=== PATIENT | male | born 1945 | race Caucasian/White ===

== ENCOUNTER 2018-01-27 14:16 | Emergency (ER) | payer MEDICARE ==
--- NOTE | 2018-01-27 15:40 | RAD ---
INDICATION: Right ankle injury. TECHNIQUE: 3 views of the right ankle were obtained. FINDINGS: There is diffuse soft tissue swelling. There is an oblique fracture extending through the distal fibular metaphysis to the joint margin. The distal fragment is displaced one cortical diameter lateral and posterior relative the proximal fragment. There is an oblique fracture of the distal tibia extending from the junction of the medial metaphysis and medial malleolus to the joint margin. The fracture fragments appear nondisplaced. There is a nondisplaced fracture of the posterior malleolus. There is also a fracture fragment present anterior to the tibia possibly arising from the medial malleolus fracture although this is not definite. IMPRESSION: TRIMALLEOLAR FRACTURE DESCRIBED.
[2018-01-27 17:48] VITALS: BP 141/78
--- NOTE | 2018-01-27 19:05 | ED ---
Tereza Alvarez Michael, scribed for Alonzo Cain MD on 01/27/18 at 1520 . Lower Extremity - HPI Summary HPI Summary: Pt is a 72 y/o M BIBA presenting to ED s/p falling; c/o R ankle pain. Associated pain is moderate, ranked 4/10. Aggravating factors: ambulation. He was outside spraying the weeds when he tripped on a rock and fell down a hill. Pt crawled inside, grabbed a cell phone and called EMS. Associated sx: Ankle swelling. PMHx: Pre-diabetes, shingles. - History of Current Complaint Chief Complaint: EDExtremityUpper Stated Complaint: RT ANKLE INJURY Time Seen by Provider: 01/27/18 14:32 Hx Obtained From: Patient Mechanism Of Injury: Fall From A Standing Position - Tripped over a rock Onset of Pain: Immediate Onset/Duration: Still Present Severity Currently: Moderate - 4/10 Pain Intensity: 4 Pain Scale Used: 0-10 Numeric Timing: Constant Location: Is Discrete @ - R lateral ankle Associated Signs And Symptoms: Positive: Swelling Aggravating Factor(s): Ambulation - Allergies/Home Medications Allergies/Adverse Reactions: Allergies Allergy/AdvReac Type Severity Reaction Status Date / Time MS Ibuprofen [Ibuprofen] Allergy Severe Itching Verified 09/10/14 08:18 MS Lisinopril [Lisinopril] Allergy Unknown Verified 09/10/14 08:18 Reaction Details PMH/Surg Hx/FS Hx/Imm Hx Endocrine/Hematology History: Reports: Hx Diabetes - DM II Cardiovascular History: Reports: Hx Angioplasty - STENT TO LAD IN 2002, Hx Coronary Artery Disease, Hx Hypercholesterolemia, Hx Hypertension, Hx Myocardial Infarction, Other Cardiovascular Problems/Disorders - cardiomyopathy , EF 25-30% Denies: Hx Angina, Hx Valvular Heart Disease Respiratory History: Denies: Hx Asthma, Hx Chronic Obstructive Pulmonary Disease (COPD) Sensory History: Reports: Hx Contacts or Glasses - not with patient Opthamlomology History: Reports: Hx Contacts or Glasses - not with patient Infectious Disease History: Yes Infectious Disease History: Reports: Hx Hepatitis - Patient states he was diagnosed with Hep C in the 1970s while in the [employer], Hx Human Immunodeficiency Virus (HIV) - HIV positive Denies: Traveled Outside the [place] in Last 30 Days - Family History Known Family History: Positive: Other - CVA - Father - Social History Occupation: Retired Lives: Dormitory/Roommates - friend Alcohol Use: Rare Alcohol Amount: "once every 5 years" Substance Use Type: Reports: None Smoking Status (MU): Former Smoker Review of Systems Negative: Fever Positive: Arthralgia - R ankle pain, Other - R ankle swelling All Other Systems Reviewed And Are Negative: Yes Physical Exam - Summary Physical Exam Summary: General: well-appearing, no pain distress Skin: warm, color reflects adequate perfusion, dry, R forearm and R anterior leg abrasions Head: normal Eyes: EOMI, ELIN ENT: normal Neck: supple, nontender Respiratory: CTA, breath sounds present Cardiovascular: RRR Abdomen: soft, nontender Bowel: present Musculoskeletal: strength/ROM intact, R lateral ankle tenderness and swelling Neurological: sensory/motor intact, A&O x3 Psychological: affect/mood appropriate Triage Information Reviewed: Yes Vital Signs On Initial Exam: Initial Vitals Temp Pulse Resp BP Pulse Ox 98.8 F 63 17 148/86 99 01/27/18 14:18 01/27/18 14:18 01/27/18 14:18 01/27/18 14:18 01/27/18 14:18 Vital Signs Reviewed: Yes Diagnostics - Vital Signs Vital Signs Temp Pulse Resp BP Pulse Ox 01/27/18 14:18 98.8 F 63 17 148/86 99 - Laboratory Lab Statement: Any lab studies that have been ordered have been reviewed, and results considered in the medical decision making process. - Radiology Ankle XR Xray Interpretation: Positive (See Comments) - IMPRESSION: TRIMALLEOLAR FRACTURE DESCRIBED. Radiology Interpretation Completed By: Radiologist Lower Extremity Course/Dx - Course Course Of Treatment: DISCUSSED THE CASE/X-RAY RESULTS WITH DR RICH. HE RECOMMENDED POSTERIOR AND STIRRUP SPLINTING, NON WEIGHT BEARING AND F/U WITH HIM ON 01/29/18. THE SPLINTS WERE PLACED BY PA IN ED. NEUROVASCULAR INTACT AFTER SPLINT PLACEMENT. F/U ORTHO; RETURN TO ED IF WORSE. - Diagnoses Provider Diagnoses: Fracture of ankle, right, closed - Physician Notifications Discussed Care Of Patient With: Cheikh Han Time Discussed With Above Provider: 16:10 Instructed by Provider To: Other - Provider recommends the usage of a splint, D/ C - follow up in office. Discharge - Sign-Out/Discharge Documenting (check all that apply): Discharge/Admit/Transfer - D/C - Discharge Plan Condition: Stable Disposition: HOME Patient Education Materials: Ankle Fracture (ED) Referrals: Hannah Gomez MD [Primary Care Provider] - Cheikh Han MD [Medical Doctor] - Additional Instructions: FOLLOW UP WITH ORTHOPEDICS. CALL 01/29/18 FOR FOLLOW UP. RETURN TO THE EMERGENCY DEPARTMENT FOR ANY WORSENING OF YOUR CONDITION OR QUESTIONS OR CONCERNS. - Billing Disposition and Condition Condition: STABLE Disposition: Home The documentation as recorded by the Tereza barrett Michael accurately reflects the service I personally performed and the decisions made by me, Alonzo Cain MD.
== END 2018-01-27 17:46 | disposition home or self-care (01) ==
LOC: ED 14:16
DX: S82.854A Nondisplaced trimalleolar fracture of right lower leg, initial encounter for closed fracture (principal); W18.09XA Striking against other object with subsequent fall, initial encounter; Y93.H2 Activity, gardening and landscaping; Y92.89 Other specified places as the place of occurrence of the external cause; R73.03 Prediabetes; Z86.19 Personal history of other infectious and parasitic diseases; Z95.5 Presence of coronary angioplasty implant and graft; Z87.891 Personal history of nicotine dependence; Z88.6 Allergy status to analgesic agent; Z88.8 Allergy status to other drugs, medicaments and biological substances
CPT/HCPCS: 99283